=== PATIENT | male | born 1980 | race Caucasian/White ===

== ENCOUNTER 2023-01-19 16:47 | Emergency (ER) | payer OTHER, SELFPAY ==
[2023-01-19 16:48] VITALS: BP 135/84; PULSE 76; RESP 14; TEMP 37.3; O2SAT 98; BMI 25.7
--- NOTE | 2023-01-19 17:07 | EDS_ITS ---
HPI History of Present Illness Chief Complaint: Syncope Informant: patient Narrative Narrative: Presents by private vehicle for evaluation near syncopal episode x2. 2 hours ago at work just walking felt lightheaded with down to his knees he was sweaty. There is no chest pains or palpitations no nausea. 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 EMS was contacted, EKG was performed he is feeling better. They cleared him to go by private vehicle. No previous similar symptoms. No recent vomiting or diarrhea. No recent travel surgeries or immobilizations. No history of PE or DVT. Tobacco history. Father he thinks had AL. He denies chest pains or pressure. He states he is drinking fluids however not much. No urinary symptoms. Prior similar symptoms: No PFSH PFSH Medical History no medical history Allergy/AdvReac Type Severity Reaction Status Date / Time No Known Allergies Allergy Verified 01/19/23 17:17 Social History Smoking Status: Current every day smoker tobacco type: cigarettes ROS ROS ED Constitutional Constitutional ED: Denies chills, fever(s) or sweats Eyes Eyes: Denies change in vision ENT ENT ED: Denies dysphagia or sore throat Cardiovascular Cardiovascular: Reports other Details: Near syncope ; Denies chest pain, leg edema, palpitations or racing heartbeat Respiratory/Chest Respiratory/Chest: Denies cough, dyspnea or dyspnea on exertion Gastrointestinal Gastrointestinal: Denies abdominal pain, diarrhea, nausea or vomiting Genitourinary Genitourinary ED: Denies dysuria, hematuria or urinary frequency Musculoskeletal Musculoskeletal: Denies back pain, extremity pain or neck pain Integumentary Denies rash or wounds Neurologic Neurologic: Denies headache(s), paresthesias or weakness EXAM Physical Exam Const Vital Signs: 01/19/23 16:48 01/19/23 17:12 01/19/23 18:58 Temperature 99.2 F H Temperature Source Temporal Pulse Rate 76 60 Respiratory Rate 14 13 Respiratory Effort Normal Respiratory Pattern Normal Blood Pressure 135/84 H Blood Pressure Mean 101 Pulse Ox 98 98 Oxygen Delivery Method Room Air Positive well nourished and well developed General Appearance ED: well developed and NAD HEENT HEENT Narrative: Mild dry mucosal membranes normocephalic and atraumatic Eyes PERRL, EOMs intact bilaterally and conjunctivae normal General Eye ED: Yes normal appearance of both eyes Neck no lymphadenopathy and supple General: Negative for tenderness Chest Wall Chest: Negative for tenderness Resp normal respiratory effort and normal air movement Effort and Inspection: symmetric chest movement; Negative for respiratory distress Cardio regular rate, regular rhythm and no murmurs Peripheral Pulses: pulses 2+ throughout GI normal to inspection, nondistended, normoactive bowel sounds and non-tender Palpation: Negative for guarding or rebound tenderness present Back/Spine no CVA tenderness and no thoracic nor lumbar tenderness Extremity normal to inspection General Extremety ED: Negative for edema or tenderness General Extremity: Negative for edema Neuro oriented x3 and no sensory deficits noted Sensorium / Orientation: awake and alert Skin no rashes or lesions noted and no wounds MDM MDM MDM Narrative Medical decision making narrative: Interventions / MDM: Differential diagnosis: Near syncope, cardiac dysrhythmia, dehydration, electrolyte abnormalities Diagnosis considered but do not suspect: Pulmonary embolism, no risk factors, PERC criteria negative. My EKG interpretation: Sinus rate of 68, no ST or T wave changes QTc 412. Imaging independently reviewed and interpreted by myself: N/A External documents reviewed: N/A Test considered but not ordered:N/A ED course: Patient with dry mucosal membranes, missed to decreased p.o. intake. Clinical dehydration IV fluids were given. History surgical orthostasis with lightheaded symptoms upon standing. Labs were checked normal electrolytes hemoglobin normal EKG normal. Patient ambulated restroom no return of symptoms. Discussed increasing oral fluids for hydration. Discussed following up with his PCP for possible further work-up with Holter monitor. Return precaution discussed. All questions were answered. Re-evaluation: stable Disposition discussed with patient/family/significant other: Patient Case discussed with consulting clinician: N/A Lab Data Attestation: I reviewed the patient's lab results. Labs: Laboratory Results - last 24 hr 01/19/23 01/19/23 17:10 17:10 WBC 8.6 RBC 5.02 Hgb 15.1 Hct 44.7 MCV 89.0 MCH 30.1 MCHC 33.8 RDW Std Deviation 43.0 RDW Coeff of [place] 13.2 Plt Count 121 L MPV 12.7 H Immature Gran % (Auto) 0.200 Neut % (Auto) 72.2 H Lymph % (Auto) 17.1 L [place] % (Auto) 9.4 Eos % (Auto) 0.6 Baso % (Auto) 0.5 Absolute Neuts (auto) 6.2 Absolute Lymphs (auto) 1.47 Nucleated RBC % 0 Sodium 137 Potassium 3.7 Chloride 107 Carbon Dioxide 28.0 Anion Gap 2 L BUN 19 H Creatinine 0.97 Estim Creat Clear Calc 106.74 Est GFR (MDRD) Af Amer 110 Est GFR (MDRD) Non-Af 91 BUN/Creatinine Ratio 19.6 Glucose 105 Calcium 9.1 Discharge Plan Triage Chief Complaint: Syncope Other Complaint: Dizziness ED Provider: Buster Carvajal Dx/Rx/DC Orders Clinical Impression: Near syncope, Dehydration Instructions: Dehydration, ED Near-Fainting, Uncertain Cause Stand Alone Forms: ED Work / School Excuse Primary Care Provider: Peter Meehan NP Referrals: NOT,DEFINED [Non-Staff] - Peter Meehan NP, [facility] [Primary Care Provider] - 3-5 Days Activity Restrictions/Additional Instructions: EKG and labs are normal. Continue oral fluids for hydration. Follow-up with your doctor. Return if worsening symptoms. Disposition Disposition: Home, Self Care Discharge Date/Time: 01/19/23 18:59
--- NOTE | 2023-01-19 17:07 | EKG12_ITS ---
Test Reason : Blood Pressure : / mmHG Vent. Rate : 068 BPM Atrial Rate : 068 BPM P-R Int : 166 ms QRS Dur : 100 ms QT Int : 388 ms P-R-T Axes : 058 062 032 degrees QTc Int : 412 ms Normal sinus rhythm with sinus arrhythmia Normal ECG Confirmed by LIZZ HERBERT, JULIO CÉSAR ([id number]), pictures editor JUN GODINEZ ([id number]) on 01/22/2023 11:07:40 AM Referred By: APOLLO Confirmed By:JULIO CÉSAR ZAMUDIO MD
[2023-01-19] MEDS: 0.9% Normal Saline 1,000 ML 1000 ML IV (17:17)
[2023-01-19 17:49] LABS: Anion Gap 2 (5-15); BUN 19 mg/dL (7-18); BUN/Creat Ratio 19.6 RATIO (10-20); Calcium,Total 9.1 mg/dL (8.5-10.1); Chloride 107 mmol/L (98-107); Creatinine, Serum 0.97 mg/dL (0.70-1.30); EST Glomerular Filtration Rate 91 mL/min (>60); Est Glom Filt Rate - Afr Amer 110 mL/min (>60); Estimated Creatinine Clearance 106.74 ml/min; Glucose 105 mg/dL (74-106); Potassium 3.7 mmol/L (3.5-5.1); Sodium Level 137 mmol/L (136-145)
[2023-01-19 18:00] LABS: Absolute Lymphocyte Count 1.47 X10^3/uL (0.83-4.51); Absolute Neutrophil Count 6.2 X10^3/uL (2.0-7.7); Basophil# 0.04 X10^3/uL; Basophil% 0.5 % (0-1); Eosinophil# 0.05 X10^3/uL; Eosinophils% 0.6 % (0-5); Hematocrit 44.7 % (40-54); Hemoglobin 15.1 g/dL (13.0-16.5); Lymphocyte # 1.47 X10^3/ul (0.83-4.51); Lymphocyte % 17.1 % (19-41); Mean Corp Hgb Conc 33.8 g/dL (32-36); Mean Corpuscular Hgb 30.1 pg (27.0-32.0); Mean Platelet Vol. 12.7 fl (6.2-12.0); Monocyte# 0.81 X10^3/uL; Monocyte% 9.4 % (0-10); NRBC Flagged by Analyzer 0 % (0-5); Neutrophil # 6.22 X10^3/uL (2.7-7.7); Neutrophil % 72.2 % (47-70); Platelet Count 121 K/mm3 (150-450); RBC Distribution Width CV 13.2 % (11.6-14.6); Red Blood Count 5.02 M/mm3 (4.6-6.2); White Blood Count 8.6 K/mm3 (4.4-11.0)
[2023-01-19 18:58] VITALS: PULSE 60; RESP 13; O2SAT 98
== END 2023-01-19 18:59 | disposition home or self-care (01) ==
PROVIDERS: Emergency Provider Emergency Medicine; PCP Nurse Practitioner Family; Visit Provider Emergency Medicine
DX: R55 Syncope and collapse (principal); E86.0 Dehydration; F17.210 Nicotine dependence, cigarettes, uncomplicated
CPT/HCPCS: 80048; 85025; 93005; 96360; 99284; J7030; A4216